=== PATIENT | male | born 1990 | race Caucasian/White ===

== ENCOUNTER 2019-09-07 08:41 | Emergency (ER) | payer SELFPAY ==
[~2019-09-07] VITALS: Ht 177.8 cm; Wt 77.1 kg
[2019-09-07] MEDS ORDERED: OLANZAPINE 10 MG VIAL IM ONE ×2 (08:54→09:00)
--- NOTE | 2019-09-07 08:58 | NUR ---
line started on L ac g 18, blood drawn from line and sent to lab
[2019-09-07] MEDS ORDERED: IV NS 0.9% 1,000 ML BAG IV ONE (09:00)
[2019-09-07 09:02] LABS: BASOPHILS # (AUTO) 0.1 /CMM (0.0-0.2); BASOPHILS % (AUTO) 0.5 % (0.0-2.0); EOSINOPHILS % (AUTO) 0.2 % (0.0-6.0); HEMATOCRIT 35 % (39-51); HEMOGLOBIN 11.5 g/dL (13.5-17.5); LYMPHOCYTES # (AUTO) 1.2 /CMM (0.8-4.8); LYMPHOCYTES % (AUTO) 9.5 % (20.0-44.0); MEAN CORPUSCULAR HGB CONC 33 g/dl (31.0-36.0); MEAN CORPUSCULAR VOLUME 89 fL (80-96); MONOCYTES # (AUTO) 1.4 /CMM (0.1-1.30); MONOCYTES % (AUTO) 11.2 % (2.0-12.0); NEUTROPHILS % (AUTO) 78.6 % (43.0-81.0); PLATELET COUNT (AUTO) 569 /CMM (150-450); RED BLOOD CELL COUNT(AUTO) 3.99 MIL/uL (4.5-6.0); WHITE BLOOD COUNT (AUTO) 12.7 K/uL (4.3-11.0)
[2019-09-07 09:05] LABS: APPEARANCE,URINE SLIGHTLY HAZY (CLEAR); BILIRUBIN,URINE SMALL (NEGATIVE); BLOOD, URINE Trace-intact Ery/uL (NEGATIVE); KETONES,URINE Negative (NEGATIVE); LEUKOCYTE ESTERASE ,URINE Negative (NEGATIVE); NITRITE, URINE Negative (NEGATIVE); PROTEIN,URINE 30 mg/dl (NEGATIVE); UGLUCOSE Negative (NEGATIVE)
[2019-09-07 09:06] LABS: COLOR,URINE DARK YELLOW (YELLOW)
[2019-09-07 09:08] LABS: BACTERIA,URINE None seen /HPF (None Seen); SQUAMOUS EPITHELIAL CELL,UR Rare /HPF (None Seen); WBC,URINE 0-2 /HPF (0-3)
[2019-09-07 09:09] LABS: URINE AMORPHOUS PHOSPHATES Few /HPF (None Seen)
[2019-09-07 09:10] LABS: CALCIUM, SERUM 9.2 mg/dL (8.5-10.1); CARBON DIOXIDE 32 mmol/L (21-32); CHLORIDE 106 mmol/L (98-107); GLUCOSE 105 mg/dL (74-106); POTASSIUM 4.8 mmol/L (3.5-5.1); SODIUM SERUM 143 mmol/L (136-145); UREA NITROGEN, BLOOD 21 mg/dL (7-18)
[2019-09-07 09:27] LABS: ACETAMINOPHEN 0 ug/ml (10-30); ALANINE AMINOTRANSFERASE 48 U/L (12-78); ALBUMIN 2.9 g/dL (3.4-5.0); ALCOHOL, BLOOD < 3 mg/dL (0-0); ALKALINE PHOSPHATASE 75 U/L (46-116); ASPARTATE AMINOTRANSFERASE 71 U/L (15-37); BILIRUBIN,DIRECT 0.1 mg/dL (0.0-0.2); BILIRUBIN,TOTAL 0.3 mg/dL (0.2-1.0); SALICYLATE 1.1 mg/dL (2.8-20.0); TOTAL PROTEIN, SERUM 7.4 g/dL (6.4-8.2)
--- NOTE | 2019-09-07 09:52 | NUR ---
Patient is resting comfortably in bed with eyes closed. Easily aroused. VSS
[2019-09-07] MEDS ORDERED: LORAZEPAM INJ 2 MG/ML VIAL IV ONE (10:30)
[2019-09-07] MEDS ORDERED: LORAZEPAM INJ 2 MG/ML VIAL ONE (10:31)
--- NOTE | 2019-09-07 12:00 | NUR ---
STILL SLEEPING, BUT AROUSABLE.
--- NOTE | 2019-09-07 15:00 | NUR ---
PATIENT ASLEEP IN NO DISTRESS, VSS.
--- NOTE | 2019-09-07 16:53 | NUR ---
Patient is resting comfortably in bed with eyes closed. Easily aroused. VSS
--- NOTE | 2019-09-07 17:56 | NUR ---
Patient is resting comfortably in bed with eyes closed. Easily aroused. VSS
--- NOTE | 2019-09-07 22:10 | NUR ---
Patient is resting comfortably in bed with eyes closed. Easily aroused. VSS
--- NOTE | 2019-09-08 03:38 | NUR ---
PATIENT IS RESTING COMFORTABLY IN BED. PATIENT ALERT AND ORIENTED UPON TAKING VITALS. Patient states, "What am I freaking out for?". Patient reassured. NOT IN ANY DISTRESS. CONNECTED TO MONITOR. BREATHING EVENLY AND UNLABORED. CALL LIGHT WITHIN BEDSIDE
--- NOTE | 2019-09-08 10:08 | NUR ---
Social service consult for drug use and homelessness. Upon chart review and MD notes, pt. is a 29-year-old male who was found outside a hotel room yesterday morning with his pants down. Patient was uncooperative in the field and was given Versed IM. Patient was nonverbal upon arrival. Pt. was in the ED this morning and stayed in the ER the entire night. [employer] met with the pt. bedside. Pt. is alert and oriented x 4. Pt. appears disheveled and unkempt. Pt informed [employer], he is from [place] and came to [place] on vacation 2 months ago. Pt's family is in [place]. Pt. has no source of income or government assistance. Pt. is a methamphetamine user and uses daily. Pt. stated, he uses whatever drugs he can find. Pt. alleges to drink alcohol sometimes. Pt. denies any psychiatric diagnosis and hospitalizations at this time. Pt. denies suicidal ideations, intent, plan or means at this time. Pt. denies homicidal ideations and visual/auditory hallucinations at this time. Pt. is homeless and was informed of the [facility] program. Pt. was provided with active listening and emotional support and encouraged to go to a drug treatment program. [facility] provided pt. with the [facility] [id number] [facility] program list and the following homeless resources: [facility] located at [address] ; [facility] [place], [address] [place] ; [facility] [place], [address] [facility]. A ; [facility] Homeless Resource Directory which includes food stamps, transitional housing, showers and hot meals etc; Mental Health clinics such as [facility] ; [facility] ; Health clinics;[facility] and Alcohol treatment centers such as [facility], ; [facility] Substance Abuse Hotline and [facility] . Pt. was provided with warm meals while in the ED. Pt. was given a TAP card, Homeless Patient Waiver form was placed in pt's chart for him to sign upon discharge. SORAIDA Ace and Dr. Sheldon were notified of pt's discharge plan. No other social service needs are requested at this time.
--- NOTE | 2019-09-08 11:59 | NUR ---
Patient given written and verbal discharge instructions. Patient verbalizes understanding of instructions. Patient is ambulatory with steady gait. Refuses offer of jail placement. Patient given list of available shelters in surrounding area.IV removed. Catheter intact and site benign. Pressure and 4x4 applied to site. No bleeding noted.
[2019-09-08 12:00] VITALS: BP 112/84
== END 2019-09-08 12:01 | disposition home or self-care (01) ==
LOC: ER 08:42 → EDBD 08:42 → ER 09-08 12:01
DX: G93.40 Encephalopathy, unspecified (principal); F15.10 Other stimulant abuse, uncomplicated
CPT/HCPCS: 36415; 80048; 80076; 80305; 80307; 80329; 81001; 82962; 85025; 93005; 96372; 96374; 99284; G0480; J2060; J3490; J7030; 81000-TC